=== PATIENT | male | born 1950 | race Caucasian/White ===

== ENCOUNTER 2017-12-13 14:19 | Emergency (ER) | payer OTHER, MEDICARE ==
[~2017-12-13] VITALS: Ht 180.3 cm; Wt 119.0 kg
[2017-12-13 15:19] LABS: HEMATOCRIT 48.8 % (38.0-50.0); HEMOGLOBIN 17.1 G/DL (12.5-16.6); MCH 28.9 PG (29.0-34.0); MCV 82.6 FL (86-99); PLATELET COUNT 186 K/uL (156-360); RBC DIS.WIDTH-CV 12.8 % (11.8-14.6); RBC DIS.WIDTH-SD 37.9 % (39-53); RED BLOOD COUNT 5.91 M/uL (4.00-5.50); WHITE BLOOD COUNT 8.1 K/uL (4.1-10.2)
[2017-12-13 15:32] LABS: CHLORIDE 103 mEq/L (99-109); POTASSIUM 4.8 mEq/L (3.7-5.4); SODIUM 137 mEq/L (136-147)
[2017-12-13 15:34] LABS: GLUCOSE 162 mg/dL (70-99)
[2017-12-13 15:38] LABS: CREATININE 0.9 mg/dL (0.6-1.3); GFR ESTIMATE (CALCULATED) > 59 mL/min/ (58.99-99999)
[2017-12-13 15:39] LABS: UREA NITROGEN (BUN) 15 mg/dL (9-23)
[2017-12-13 15:41] LABS: TROP-I INTERPRETATION NEGATIVE; TROPONIN-I < 0.01 ng/mL (0.0-0.30)
[2017-12-13 17:53] VITALS: BP 138/70
== END 2017-12-13 17:54 | disposition home or self-care (01) ==
LOC: EME 14:19
DX: R00.2 Palpitations (principal); R42 Dizziness and giddiness; I10 Essential (primary) hypertension; K21.9 Gastro-esophageal reflux disease without esophagitis; E78.5 Hyperlipidemia, unspecified; E11.9 Type 2 diabetes mellitus without complications
CPT/HCPCS: 71046; 80048; 84484; 85027; 93005; 99281; 99284